=== PATIENT | female | born 1990 | race Caucasian/White ===

== ENCOUNTER 2016-06-18 17:17 | Emergency (ER) | payer OTHER ==
[2016-06-18 17:51] LABS: URINE BILIRUBIN NEGATIVE (NEGATIVE); URINE BLOOD NEGATIVE (NEGATIVE); URINE GLUCOSE (UA) NEGATIVE (NEGATIVE); URINE LEUKOCYTE ESTERASE NEGATIVE (NEGATIVE); URINE NITRITE NEGATIVE (NEGATIVE); URINE PROTEIN NEGATIVE (NEGATIVE); URINE UROBILINOGEN NORMAL (0-1 mg/dl)
[2016-06-18 17:56] LABS: URINE APPEARANCE HAZY; URINE COLOR YELLOW
[2016-06-18 17:57] LABS: URINE AMORPHOUS SEDIMENT 4+; URINE BACTERIA RARE; URINE EPITHELIAL CELLS FEW /hpf; URINE RBC 0-2 /hpf; URINE WBC 0-1 /hpf
[2016-06-18 18:02] LABS: HCG,QUALITATIVE URINE POSITIVE
[2016-06-18] MEDS ORDERED: ONDANSETRON 4 MG/2ML 2 ML VIAL ONE (18:11)
[2016-06-18] MEDS ORDERED: NALBUPHINE HCL 10 MG/ML AMP ONE (18:12)
[2016-06-18 18:22] LABS: ABSOLUTE NEUTROPHIL COUNT 5.2 K/mm3 (1.8-7.7); BASO # 0.1 K/mm3 (0.0-0.2); BASO % 0.7 % (0.2-1.0); EOS # 0.2 (0.0-0.5); EOS % 2.4 % (0.9-2.9); HEMATOCRIT 41.4 % (37.0-47.0); HEMOGLOBIN 13.9 gm/l (12.0-16.0); IMM NEUT% 0.4 % (0-1); LYMPH # 2.3 (1.0-4.8); LYMPH % 27.2 % (15-45); MEAN CORPUSCULAR HEMOGLOBIN 28.2 pg (27.0-31.0); MEAN CORPUSCULAR HGB CONC 33.6 g/dl (33.0-37.0); MEAN PLATELET VOLUME 10.2 fl (7.4-10.4); MONO # 0.6 (0.0-0.8); MONO % 6.7 % (4-12); NEUT % 62.6 % (43-75); PLATELET COUNT 240 K/mm3 (130-400); RED CELL DISTRIBUTION WIDTH 13.5 % (11.5-14.5)
[2016-06-18 18:44] LABS: ALB/GLOB RATIO 1.3 (>1.0); ALBUMIN 4.1 gm/dL (3.5-5.7); CALCIUM 9.9 mg/dL (8.6-10.3)
--- NOTE | 2016-06-18 19:38 | US ---
Name: MARIA ESTHER YANEZ Exam: Obstetrical ultrasound Comparison: None Clinical history: Positive beta-hCG. By dates, gestation should be 3 weeks 6 days. Pelvic pain. Findings: Transabdominal and endovaginal imaging of the pelvis was performed. Visualized bladder is normal. The uterus is normal size. There are findings suggesting a 1.4 x 1.0 x 0.9 cm posterior leiomyoma. Endometrium is 7.3 mm thick and homogeneous. There is no ultrasound evidence for an intrauterine gestation. There is no free fluid. Right ovary measures 4.2 x 2.3 x 1.8 cm and left ovary measures 3.7 x 3.5 x 1.7 cm. Impression: 1. 1.4 cm posterior uterine leiomyoma 2. Normal appearance of the endometrium. There is no visible intrauterine gestation 3. No free fluid 4. Normal appearance of the ovaries 5. Serial beta-hCG and/or ultrasound is recommended. This exam does not exclude ectopic . Note: The above report was uploaded to [facility]'s electronic medical records system at 1934 hours.
[2016-06-19 14:29] LABS: CHLAMYDIA BD Negative (Negative); N.GONORRHOEAE BD Negative (Negative); SOURCE Urine (())
== END 2016-06-18 20:26 | disposition home or self-care (01) ==
LOC: ED 17:17
DX: O20.0 Threatened abortion (principal); O21.0 Mild hyperemesis gravidarum; Z3A.01 Less than 8 weeks gestation of pregnancy
CPT/HCPCS: 87491; 87591; 81025; 84702; 85025; 80053; 81001; 76817; 76801; 86901; 96375; 99284 ×2; 96374; J2300; J2405